=== PATIENT | female | born 1955 | race Caucasian/White ===

== ENCOUNTER → 2019-01-03 16:15 | Outpatient (CLI) | payer OTHER | END | disposition home or self-care (01) | LOC: D.CT 16:15 | DX: R42 Dizziness and giddiness (principal); R51 Headache ==

== ENCOUNTER 2020-04-15 11:30 | Emergency (ER) | payer MEDICAID ==
[~2020-04-15] VITALS: Ht 167.6 cm; Wt 80.5 kg
[2020-04-15 11:31] VITALS: Ht 167.6 cm; Wt 80.5 kg
[2020-04-15] MEDS ORDERED: ACIDOPHILUS-PE1 EACH PO (11:45)
[2020-04-15] MEDS ORDERED: VITAMIN D1000 UNIT PO (11:46)
[2020-04-15] MEDS ORDERED: ASPIRIN325 MG PO (11:46)
[2020-04-15] MEDS ORDERED: GEODON40 MG PO (11:47)
[2020-04-15] MEDS ORDERED: FERROUS SULFAT325 MG PO (11:47)
[2020-04-15] MEDS ORDERED: HEALTHYLAX17 GM PO (11:48)
[2020-04-15] MEDS ORDERED: LEVOFLOXACIN500 MG PO (11:49)
[2020-04-15] MEDS ORDERED: HALDOL5 MG/ML IM (11:49)
[2020-04-15] MEDS ORDERED: MELATONIN 3 MG1 TAB PO (11:49)
[2020-04-15] MEDS ORDERED: HYDROCODON-ACE1 EAC7 PO ×2 (11:50)
[2020-04-15] MEDS ORDERED: OMEPRAZOLE20 M1 PO (11:50)
[2020-04-15] MEDS ORDERED: REMERON15 MG PO (11:51)
[2020-04-15] MEDS ORDERED: BISOPROLOL FUMAR5 MG (11:51)
[2020-04-15 12:11] LABS: UDS - AMPHET NEGATIVE QUAL (NEGATIVE); UDS - BARB NEGATIVE QUAL (NEGATIVE); UDS - BENZO NEGATIVE QUAL (NEGATIVE); UDS - COCAINE NEGATIVE QUAL (NEGATIVE); UDS - OPIATE POSITIVE QUAL (NEGATIVE); UDS - PCP NEGATIVE QUAL (NEGATIVE); UDS - THC NEGATIVE QUAL (NEGATIVE)
[2020-04-15 12:12] LABS: BACTERIA FEW /hpf (NEGATIVE); BILIRUBIN NEGATIVE (NEGATIVE); EPITHELIAL CELLS OCC /hpf (0-5); GLUCOSE NEGATIVE (NEGATIVE); KETONE NEGATIVE (NEGATIVE); NITRITE NEGATIVE (NEGATIVE); RED CELLS - URINE RARE /hpf (0-5); UROBILINOGEN NORMAL (NORMAL); WHITE CELLS - URINE 0-5 /hpf (NEGATIVE)
[2020-04-15 12:26] LABS: BASOPHILS 0.2 % (0-2); EOSINOPHILS 0 % (0-7); HEMATOCRIT 32.7 % (36.0-48.0); HEMOGLOBIN 10.4 g/dL (12-16); LYMPHOCYTES 22.7 % (15-50); MCH 28.2 pg (26.0-34.0); MCHC 31.8 g/dL (31.0-37.0); MCV 88.6 fL (80.0-100.0); MEAN PLATELET VOLUME 9.7 fL (7.4-10.4); MONOCYTES 8.1 % (2-11); PLATELET COUNT 160 10x3/uL (130-400); RBC 3.69 10x6/uL (4.00-5.40); RDW 13.4 % (11.5-14.5); WBC 4.2 10x3/uL (4.8-10.8)
[2020-04-15 12:45] LABS: ACETAMINOPHEN 0.3 ug/mL (10.0-30.0); ALBUMIN 3.4 g/dL (3.4-5.0); BILIRUBIN - TOTAL 0.19 mg/dL (0.2-1.3); CALCIUM 8.9 mg/dL (8.5-10.1); CARBON DIOXIDE 27.8 mmol/L (21.0-32.0); CREATININE - SERUM 1.3 mg/dL (0.6-1.3); MAGNESIUM - SERUM 1.8 mg/dL (1.8-2.4); PROTEIN - SERUM 7.4 g/dL (6.4-8.2)
--- NOTE | 2020-04-15 13:06 | NUR ---
DR. BA NOTIFIED AND SITTER ORDERED. SITTER LINE OF SIGHT. NOTIFIED CHARGE NURSE AND ATTENDING IN REGARDS TO ASSESSMENT FINDINGS. RESOURCES GIVEN TO PT AND SAFETY PLAN INTIATED.
[2020-04-15 13:43] LABS: ANION GAP 11.1 mmol/L (8-16); POTASSIUM - SERUM 3.9 mmol/L (3.5-5.1)
[2020-04-15 16:40] VITALS: BP 158/68
== END 2020-04-15 17:40 ==
LOC: D.ER 11:30
PROVIDERS: Family Medicine
DX: R45.851 Suicidal ideations (principal); F20.9 Schizophrenia, unspecified; R44.0 Auditory hallucinations

== ENCOUNTER → 2020-06-04 08:44 | Outpatient (CLI) | payer MEDICAID ==
[2020-04-15 11:31] VITALS: BMI 28.6
[~2020-06-04 08:44] MED LIST: ACIDOPHILUS-PE1 EACH PO; ASPIRIN325 MG PO; BISOPROLOL FUMAR5 MG; FERROUS SULFAT325 MG PO; GEODON40 MG PO; HALDOL5 MG/ML IM; HEALTHYLAX17 GM PO; HYDROCODON-ACE1 EAC7 PO; LEVOFLOXACIN500 MG PO; MELATONIN 3 MG1 TAB PO; OMEPRAZOLE20 M1 PO; REMERON15 MG PO; VITAMIN D1000 UNIT PO
== END | disposition home or self-care (01) ==
LOC: D.MRI 08:44
PROVIDERS: ATTEND Internal Medicine Geriatric Medicine
DX: Z47.32 Aftercare following explantation of hip joint prosthesis (principal); M85.80 Other specified disorders of bone density and structure, unspecified site; K21.9 Gastro-esophageal reflux disease without esophagitis; Z85.828 Personal history of other malignant neoplasm of skin; Z86.018 Personal history of other benign neoplasm; I10 Essential (primary) hypertension; F20.89 Other schizophrenia; Z91.81 History of falling; Z86.39 Personal history of other endocrine, nutritional and metabolic disease; R45.6 Violent behavior; R45.850 Homicidal ideations; R39.15 Urgency of urination; R33.9 Retention of urine, unspecified; M62.59 Muscle wasting and atrophy, not elsewhere classified, multiple sites; M62.569 Muscle wasting and atrophy, not elsewhere classified, unspecified lower leg; R26.9 Unspecified abnormalities of gait and mobility; S72.042D Displaced fracture of base of neck of left femur, subsequent encounter for closed fracture with routine healing; F25.9 Schizoaffective disorder, unspecified; F32.9 Major depressive disorder, single episode, unspecified; F33.9 Major depressive disorder, recurrent, unspecified; F41.9 Anxiety disorder, unspecified

== ENCOUNTER 2021-01-21 13:30 | Emergency (ER) | payer MEDICAID ==
[~2021-01-21] VITALS: Ht 167.6 cm; Wt 84.5 kg
[2021-01-21 13:38] VITALS: BP 119/70; Ht 167.6 cm; Wt 84.5 kg
[2021-01-21 14:16] LABS: BASOPHILS 0.1 % (0-2); EOSINOPHILS 0 % (0-7); HEMATOCRIT 35.1 % (36.0-48.0); HEMOGLOBIN 11.1 g/dL (12-16); IMMATURE GRANULOCYTES 0.1 % (0-5); LYMPHOCYTE ABS# 1.37 10x3/uL (1.18-3.74); LYMPHOCYTES 16.3 % (15-50); MCH 28.5 pg (26.0-34.0); MCHC 31.6 g/dL (31.0-37.0); MCV 90.2 fL (80.0-100.0); MEAN PLATELET VOLUME 10.8 fL (7.4-10.4); MONOCYTES 7.5 % (2-11); NEUTROPHIL ABS# 6.37 10x3/uL (1.56-6.13); RBC 3.89 10x6/uL (4.00-5.40); RDW 13.3 % (11.5-14.5); WBC 8.4 10x3/uL (4.8-10.8)
[2021-01-21 14:26] LABS: CALC OSMOLALITY 278 mosm/kg (275-300); CALCIUM 9.2 mg/dL (8.5-10.1); CARBON DIOXIDE 26.5 mmol/L (21.0-32.0); CHLORIDE - SERUM 103 mmol/L (98-107); CREATININE - SERUM 1.4 mg/dL (0.6-1.3); GLUCOSE 98 mg/dL (74-106); POTASSIUM - SERUM 3.6 mmol/L (3.5-5.1); SODIUM 139 mmol/L (136-145); UREA NITROGEN 16 mg/dL (7-18); eGFR NON AFRICAN AMERICAN 40 mL/min (90-120)
[2021-01-21 14:32] LABS: PLATELET COUNT 143 10x3/uL (130-400)
[2021-01-21 14:40] LABS: APTT 24.7 SECONDS (22.8-39.4); INR 1.05 (0.85-1.17); PROTIME 12.7 SECONDS (11.6-15.0)
[2021-01-21 14:42] LABS: ALBUMIN 3.1 g/dL (3.4-5.0); ALKALINE PHOSPHATASE 62 U/L (30-120); ALT (SGPT) 16 U/L (10-68); BILIRUBIN - TOTAL 0.31 mg/dL (0.2-1.3); CKMB 1.1 U/L (0.0-3.6); CREATINE KINASE 41 UL (21-215); MAGNESIUM - SERUM 2.3 mg/dL (1.8-2.4); PROTEIN - SERUM 7.8 g/dL (6.4-8.2)
[2021-01-21 14:45] LABS: TROPONIN-I < 0.017 ng/mL (0.000-0.060)
[2021-01-21 15:11] LABS: BILIRUBIN NEGATIVE (NEGATIVE); KETONE NEGATIVE (NEGATIVE); NITRITE NEGATIVE (NEGATIVE); UROBILINOGEN NORMAL mg/dL (< 2)
[2021-01-21 15:13] LABS: BACTERIA FEW HPF (NONE SEEN); GRANULAR CAST RARE LPF (NONE SEEN); SQUAMOUS EPITHELIAL 0-5 HPF (0-4); WHITE CELLS - URINE 3 HPF (0-4)
[2021-01-21 15:18] LABS: UDS - AMPHET NEGATIVE QUAL (NEGATIVE); UDS - BARB NEGATIVE QUAL (NEGATIVE); UDS - BENZO NEGATIVE QUAL (NEGATIVE); UDS - COCAINE NEGATIVE QUAL (NEGATIVE); UDS - OPIATE NEGATIVE QUAL (NEGATIVE); UDS - PCP NEGATIVE QUAL (NEGATIVE); UDS - THC NEGATIVE QUAL (NEGATIVE)
== END 2021-01-21 19:16 ==
LOC: D.ER 13:30
PROVIDERS: Family Medicine
DX: R53.1 Weakness (principal); R07.9 Chest pain, unspecified; I10 Essential (primary) hypertension; K21.9 Gastro-esophageal reflux disease without esophagitis